=== PATIENT | female | born 2000 | race Hispanic/Latino ===

== ENCOUNTER 2021-10-26 21:11 | Emergency (ER) | payer BC | END 2021-10-26 21:57 | disposition home or self-care (01) | LOC: BURERS 21:11 | DX: R55 Syncope and collapse (principal); S00.83XA Contusion of other part of head, initial encounter; W18.30XA Fall on same level, unspecified, initial encounter; Y92.218 Other school as the place of occurrence of the external cause | CPT/HCPCS: 93005 ==